=== PATIENT | female | born 1975 | race Two or more races ===

== ENCOUNTER 2024-05-01 11:00 | Emergency (ER) | payer OTHER ==
[~2024-05-01] VITALS: Ht 152.4 cm; Wt 63.0 kg
[2024-05-01] MEDS ORDERED: KETOROLAC TROMETHAMINE 60 MG VIAL IM STA (13:18)
[2024-05-01] MEDS ORDERED: ORPHENADRINE CITRATE 30 MG/ML AMPUL IM STA (13:18)
== END 2024-05-01 15:15 | disposition home or self-care (01) ==
LOC: ER 11:01
DX: M62.838 Other muscle spasm (principal)